=== PATIENT | male | born 2000 | race Caucasian/White ===

== ENCOUNTER 2022-01-08 18:50 | Emergency (ER) | payer SELFPAY ==
--- NOTE | ~2022-01-08 | CT_ITS ---
EXAMINATION: CT abdomen pelvis wo con DATE: 01/08/2022 20:17 INDICATION: hematuria, low back pain TECHNIQUE: Computed tomography (CT) of the abdomen and pelvis was performed without intravenous contr ast. Automated exposure control and iterative reconstruction technique were employed. The dose-length product was 205.58 mGy-cm. COMPARISON: None FINDINGS: Lower thorax: Unremarkable. Liver: Normal. Biliary/Gallbladder: Gallbladder is normal. No bile duct dilation. Spleen: Normal. Pancreas: No mass or duct dilation. Adrenals:No mass. Kidneys: No mass, stone, or hydronephrosis. GI tract: No small or large bowel dilation. Normal appendix. Mesentery/Peritoneum: No ascites, mass, or free air. Retroperitoneum: No mass. Pelvis: Pelvic organs are within normal limits. Bones/Soft Tissues: Soft tissues and body wall unremarkable. No acute osseous finding. Additional Findings: None. IMPRESSION: No acute abdominopelvic process. Reviewed, dictated and finalized at location K.
[2022-01-08 18:52] VITALS: BP 134/76; PULSE 84; RESP 16; TEMP 35.8; O2SAT 100
--- NOTE | 2022-01-08 19:02 | ED.ABDPAIN ---
HPI - Abdominal Pain General Chief Complaint: Abdominal Pain <CARLIN Laws Last Filed: 01/08/22 21:41> Stated Complaint: flank pain <CARLIN Laws Last Filed: 01/08/22 21:41> Time Seen by Provider: 01/08/22 18:54 <CARLIN Laws Last Filed: 01/08/22 21:41> History of Present Illness HPI narrative: Patient is a 21-year-old male who presents for evaluation of several painful lesions around his genital area. He states the lesions have been growing in number since onset about 4 days ago. Denies known contact with STIs or STDs but he does have 2 female sexual partners that he does not use condoms with. He does report some burning when urine comes in contact with the lesions. Denies fevers, penile discharge, testicular masses. He does shave the area. Additionally reports some chronic but intermittent kidney issues over the past year that he self diagnosed himself with in [facility] due to persistent low back pain, he denies any ever having a formal work-up of his kidney function or having imaging done. He denies seeing stones passed in his urine in the past. <CARLIN Laws Last Filed: 01/08/22 21:41> Related Data Home Medications: Home Medications Medication Instructions Recorded Confirmed levothyroxine 100 mcg PO DAILY 01/08/22 01/08/22 <CARLIN Laws Last Filed: 01/08/22 21:41> Allergies/Adverse Reactions: Allergies Allergy/AdvReac Type Severity Reaction Status Date / Time Penicillins Allergy Unknown Unknown Verified 01/08/22 19:04 <CARLIN Laws Last Filed: 01/08/22 21:41> Review of Systems Review of Systems: Gen: Denies fevers or chills Eyes: Denies eye pain or visual change ENT: Denies congestion Respiratory: Denies shortness of breath or cough CV: Denies chest pain or palpitations GI: Denies abdominal pain nausea, emesis or diarrhea : Reports burning with urination. Denies urgency, frequency or hematuria Musculoskeletal: Reports low back pain. Denies muscle pain Neuro: Denies numbness, tingling, weakness or focal weakness Skin: Reports rash to genital region. Except as documented, all other systems reviewed and negative <Helga Cannon PA-C - Last Filed: 01/08/22 21:41> All systems reviewed & are unremarkable except as noted in HPI and below <Helga Cannon PA-C - Last Filed: 01/08/22 21:41> Exam Narrative: APPEARANCE: Well appearing, no pain in distress, well-nourished. Head: Normocephalic and atraumatic. EYES: PERRLA/EOMI, conjunctivae clear NOSE: No nasal drainage EARS: External ear normal in appearance THROAT: Oropharynx is clear. Mucous membranes are moist. NECK: Supple. No adenopathy, no masses. RESPIRATORY: Airway patent, respirations nonlabored. Clear to auscultation bilaterally, no rales, rhonchi, wheezing. CARDIOVASCULAR: Regular rate and rhythm without murmurs, rubs, or gallops. ABDOMINAL: Normoactive bowel sounds. Soft, nontender, nondistended. No rebound tenderness or guarding. MUSCULOSKELETAL: Extremities are warm and well-perfused. Mild tenderness in right CVA. Moves all extremities well. No edema. NEURO: Normal speech. No focal neurologic deficits. SKIN: 10-15 ulcerations noted to mons pubis area, tender to palpation, largest about 4 mm in size. He has 3 similar ulcerative lesions to shaft of penis, about 2 mm in size. No discharge noted from penis. No testicular masses. PSYCHIATRIC: Normal affect/mood. <Helga Cannon PA-C - Last Filed: 01/08/22 21:41> Course SECURITIES TELLER/PA Physician Supervision I did not see this patient nor was the care plan discussed with me, labs and imaging reviewed. I was available for evaluation and consultation, I agree with the documentation <Jeb Roberts MD - Last Filed: 01/08/22 22:09> Vital Signs Vital signs: Vital Signs Temperature 35.8 C L 01/08/22 18:52 Pulse Rate 84 01/08/22 18:52 Respira
[2022-01-08 19:44] LABS: Appearance Urine Clear (Clear); Bilirubin Urine Negative (Negative); Color Urine Yellow (Yellow); Glucose Urine UA Negative (Negative); Ketones Urine Trace mg/dL (Negative); Leukocyte Esterase Ur Negative LEU/UL (Negative); Nitrate Urine Negative (Negative); Protein Urine Negative (Negative); Specific Grav Ur 1.025 (1.001-1.035); Urobilinogen Urine 0.2 mg/dL (<2.0); pH Urine 6.5 (5.0-9.0)
[2022-01-08 19:45] LABS: Mucus Urine Rare /lpf; WBC Urine 0-3 /hpf
[2022-01-08 19:47] LABS: Add Urine Microscopic? YES; Blood Urine Trace-Intact (Negative)
[2022-01-08 20:47] LABS: Anion Gap 10 mmol/L (8-16); Blood Urea Nitrogen 14 mg/dL (9-20); Calcium 9.2 mg/dL (8.4-10.2); Carbon Dioxide 30 mmol/L (22-30); Chloride 102 mmol/L (98-107); Estimated CRCL calculation 113 ml/min; Estimated Glomerular Filt Rate > 60; Glucose 58 mg/dL (65-110); Potassium 4.3 mmol/L (3.4-5.0); Sodium 142 mmol/L (137-145)
[2022-01-08 21:10] LABS: Glucose Point of Care 111 mg/dl (65-105)
[2022-01-08 21:36] VITALS: BP 136/74; PULSE 86; RESP 15; O2SAT 99
[2022-01-10 12:15] LABS: Rapid Plasma Reagin Non-Reactive (NonReactive)
[2022-01-19 14:54] LABS: Herpes Simplex Type 1 DNA PCR Not Detected
[2022-01-19 14:56] LABS: Herpes Simplex Type 2 DNA PCR Not Detected
== END 2022-01-08 21:44 | disposition home or self-care (01) ==
PROVIDERS: Physician Assistant; Emergency Provider Emergency Medicine
DX: N50.9 Disorder of male genital organs, unspecified (principal)
CPT/HCPCS: 36415; 74176; 80048; 81001; 82948; 86592; 87491; 87529; 87591; 99284